=== PATIENT | male | born 1975 | race Caucasian/White ===

== ENCOUNTER 2022-08-29 18:54 | Emergency (ER) | payer BC ==
[~2022-08-29] VITALS: Ht 180.3 cm; Wt 79.4 kg
[2022-08-29 18:58] VITALS: BP 140/107
[2022-08-29] MEDS ORDERED: TETANUS/DIPHTHERIA TOXOID [ADULT] 0.5 ML VIAL IM ONE (20:30)
[2022-08-29] MEDS ORDERED: CLIN-141 PO (20:43)
== END 2022-08-29 20:58 | disposition home or self-care (01) ==
LOC: EDH 18:54
DX: S81.811A Laceration without foreign body, right lower leg, initial encounter (principal); Z88.0 Allergy status to penicillin; Z88.2 Allergy status to sulfonamides; Z88.8 Allergy status to other drugs, medicaments and biological substances; W45.8XXA Other foreign body or object entering through skin, initial encounter; Y93.89 Activity, other specified; Y92.89 Other specified places as the place of occurrence of the external cause; Y99.8 Other external cause status